=== PATIENT | female | born 1950 | race Caucasian/White ===

== ENCOUNTER → 2016-06-12 | Outpatient (CLI) | payer OTHER, MEDICARE | LOC: MMPC 11:11 | PROVIDERS: ATTEND Nurse Practitioner Family | DX: E78.5 Hyperlipidemia, unspecified (principal); I10 Essential (primary) hypertension; E03.9 Hypothyroidism, unspecified; Z11.59 Encounter for screening for other viral diseases | CPT/HCPCS: 99214; G0463 ==

== ENCOUNTER → 2016-11-01 | Outpatient (CLI) | payer OTHER, MEDICARE ==
[2016-11-01 07:40] LABS: CALCIUM 9.1 mg/dL (8.7-10.7); CHOL/HDL RATIO 2.88 RATIO (0-4.0); LDL CHOLESTEROL,CALCULATED 77.2 mg/dL
== END ==
LOC: LAB 07:13
PROVIDERS: ATTEND Nurse Practitioner Family
DX: E03.9 Hypothyroidism, unspecified (principal); E78.5 Hyperlipidemia, unspecified; I10 Essential (primary) hypertension; I25.10 Atherosclerotic heart disease of native coronary artery without angina pectoris; K21.9 Gastro-esophageal reflux disease without esophagitis; Z11.59 Encounter for screening for other viral diseases
CPT/HCPCS: 36415; 80048; 82247; 82465; 82550; 82977; 83718; 84075; 84443; 84450; 84460; 84478; 86803

== ENCOUNTER → 2016-11-05 | Outpatient (CLI) | payer OTHER, MEDICARE | LOC: MMPC 09:00 | PROVIDERS: ATTEND Nurse Practitioner Family | DX: E78.5 Hyperlipidemia, unspecified (principal); I10 Essential (primary) hypertension; E03.9 Hypothyroidism, unspecified; K57.32 Diverticulitis of large intestine without perforation or abscess without bleeding; M10.071 Idiopathic gout, right ankle and foot | CPT/HCPCS: 99214; G0463 ==

== ENCOUNTER → 2016-11-27 | Outpatient (CLI) | payer OTHER, MEDICARE ==
--- NOTE | 2016-11-27 09:02 | DI ---
CT ABDOMEN SCAN WITH IV CONTRAST, 11/27/2016 7:38 AM : Clinical History: Diverticulitis. Previous Exam: None at this facility. Scans are performed from the lower lung bases through the liver and kidneys with IV contrast. 50 ml o f Isovue 300 was injected IV. Water was used for rectal contrast although the patient could not andrei ate more than approximately 300 mL. The lung bases are clear. The liver is normal. The patient is status post cholecystectomy. The common hepatic and common bile ducts measure 6-7 mm. There is no abnormality of the spleen, pancreas, and a drenal glands. The right kidney is of normal size, shape, position, and contour. The left kidney has a 5 cm solid mass that shows enhancement in a pattern similar to the remaining renal parenchyma. Ther e is no infiltrative/inflammatory stranding emanating from this mass into the surrounding perirenal f at to suggest this is an aggressive malignancy. No hypervascularity or definite fatty tissue is seen to suggest this is an angiomyolipoma. There is no hydronephrosis or hydroureter. No renal or ureteral calculi are present. There are no abnormal retrocrural or periaortic nodes. No ascites is present. READIN. There is a 5 cm solid lesion that has an enhancement pattern similar to the remainder of the kidn ey without evidence of inflammatory/infiltrative change extending through the pararenal fascia into t he perirenal fat. There is no sharp demarcation between normal renal tissue and this solid lesion. A CT SPECT technetium DMSA renal scan is recommended to see if there are functioning tubules in this ma ss. If so, then this may represent a hamartoma. Also, renal ultrasound with color Doppler ultrasound is recommended and this should precede the nuclear medicine study. 2. The remainder of the examination is normal. CT PELVIS SCAN WITH IV CONTRAST, 11/27/2016 7:38 AM: Clinical History: See above. Previous Exam: None at this facility. Scans are performed from just superior to the umbilicus to the symphysis pubis with IV contrast. This is the same bolus of contrast used for the CT scans of the abdomen. Scans through the lower abdomen and pelvis show no masses or abnormal fluid collections. There is no adenopathy. The appendix is not identified with certainty but there is no inflammatory mass either in the cecum or in the right lower quadrant. The small bowel, terminal ileum, and ileocecal valve are n ormal. The colon is also normal. There is a small umbilical hernia through which only mesenteric fat has herniated. The patient is status post hysterectomy and bilateral salpingo-oophorectomy. READING: Normal CT scan of the pelvis.
== END ==
LOC: CT 07:32
PROVIDERS: ATTEND Nurse Practitioner Family
DX: K57.32 Diverticulitis of large intestine without perforation or abscess without bleeding (principal)
CPT/HCPCS: 74177

== ENCOUNTER → 2016-12-03 | Outpatient (CLI) | payer OTHER, MEDICARE ==
--- NOTE | 2016-12-03 10:20 | DI ---
BILATERAL RENAL ULTRASOUND, 12/03/2016 8:19 AM: Clinical History: Left renal mass identified incidentally on a CT scan of the abdomen and pelvis. Previous Exam: None at this facility. Comparison is made with the previous CT scan of the abdomen and pelvis from 11/27/2016. Scans are performed through both kidneys in multiple projections. The right kidney measures 120 mm, a nd the left kidney measures 130 mm. There is no solid or cystic mass in the right kidney. There is a slightly echogenic roughly 15 mm diameter mass in the lower pole of the left kidney. In the central p ortion of the mass is a focus of hypoechogenicity that may represent central necrosis. Color Doppler ultrasound shows mild hypervascularity along the periphery of the lesion. There is no hydronephrosis or hydroureter. Perfusion to the right kidney and to the "normal" portion of the left kidney is symme tric and normal. The bladder is normal. Bilateral ureteral jets are visualized. There is an estimated prevoid bladder volume of 180 mL. The post void volume was not recorded. Readin. There is a solid 15 mm diameter mass in the lower pole of the right kidney. There is vascularity along the perimeter of the lesion. There may be central necrosis. 2. There is no hydronephrosis or hydroureter of either kidney. 3. The bladder is normal.
== END ==
LOC: US 08:15
PROVIDERS: ATTEND Nurse Practitioner Family
DX: N28.89 Other specified disorders of kidney and ureter (principal)
CPT/HCPCS: 76770

== ENCOUNTER → 2017-01-01 | Outpatient (CLI) | payer OTHER, MEDICARE | LOC: LAB 07:13 | PROVIDERS: ATTEND Urology | DX: N28.89 Other specified disorders of kidney and ureter (principal) | CPT/HCPCS: 36415; 80048 ==

== ENCOUNTER → 2017-01-02 | Outpatient (CLI) | payer OTHER, MEDICARE ==
--- NOTE | 2017-01-02 09:45 | DI ---
CT CHEST W/WO CN,01/02/2017 7:49 AM: Clinical History: Left renal mass. Previous Exam: None at this facility. Findings: Multiple helically acquired CT images are obtained through the chest with and without contrast, and d emonstrate clear lungs. A few coronary artery calcifications are seen. A few peripheral vascular calc ifications are also seen. Skeletal structures are unremarkable. There is no lymphadenopathy. The liver, spleen, pancreas, adrenals and kidneys are not well evaluated on this exam but are grossly normal. Impression: No evidence of malignancy.
== END ==
LOC: CT 07:44
PROVIDERS: ATTEND Physician Assistant
DX: N28.89 Other specified disorders of kidney and ureter (principal)
CPT/HCPCS: 71270

== ENCOUNTER → 2017-01-14 | Outpatient (CLI) | payer OTHER, MEDICARE ==
[2017-01-14 12:22] LABS: BASOPHILS # (AUTO) 0.09 10*3/UL; BASOPHILS % (AUTO) 1.2 % (0-1); EOSINOPHILS # (AUTO) 0.19 10*3/UL; EOSINOPHILS % (AUTO) 2.5 % (0-8); HEMATOCRIT 44.2 % (37.0-47.0); HEMOGLOBIN 14.4 g/dL (12.0-16.0); LYMPHOCYTES # (AUTO) 2.13 10*3/uL; MEAN CORPUSCULAR HEMOGLOBIN 30.3 PG (27-31); MEAN CORPUSCULAR HGB CONC 32.6 g/dL (33-37); MEAN CORPUSCULAR VOLUME 92.9 FL (81-99); MEAN PLATELET VOLUME 9.7 FL (7.4-12.2); MONOCYTES # (AUTO) 0.66 10*3/UL (0.3-0.8); MONOCYTES % (AUTO) 8.8 % (5-15); NEUTROPHILS # (AUTO) 4.41 10*3/UL; RED BLOOD COUNT 4.76 10^6/uL (4.20-5.40)
[2017-01-14 12:24] LABS: PLATELET MORPHOLOGY COMMENT NORMAL MORPHOLOGY (NORM); RBC MORPHOLOGY COMMENT NORMAL MORPHOLOGY (NORM); WBC MORPHOLOGY COMMENT NORMAL MORPHOLOGY (NORM)
[2017-01-14 12:37] LABS: BLOOD UREA NITROGEN 21 mg/dL (7-22); BUN/CREATININE RATIO 23.33 (6-20); CALCIUM 9.4 mg/dL (8.7-10.7); EST GLOMERULAR FILTRATION > 60 (>60 ml/min/1.73m(2)); SERUM ALBUMIN 4.1 g/dL (3.5-4.8)
== END ==
LOC: LAB 12:00
PROVIDERS: ATTEND Urology
DX: N28.89 Other specified disorders of kidney and ureter (principal)
CPT/HCPCS: 36415; 80053; 85025; 85610; 85730